=== PATIENT | female | born 1980 | race Caucasian/White ===

== ENCOUNTER → 2021-04-05 | Outpatient (CLI) | payer OTHER ==
[~2021-04-05] VITALS: Ht 160 cm; Wt 70.3 kg
[2021-04-05 08:43] LABS: CREATININE 0.9 mg/dL (0.6-1.3)
[2021-04-05 09:34] VITALS: BP 105/64
[2021-04-05 10:03] VITALS: BP 102/66
[2021-04-05 11:56] VITALS: BP 94/57
[2021-04-05 12:11] VITALS: BP 100/57
[2021-04-05 12:26] VITALS: BP 104/65
== END ==
LOC: M.CT 08:07
PROVIDERS: ATTEND Internal Medicine
DX: Z01.812 Encounter for preprocedural laboratory examination (principal); R07.9 Chest pain, unspecified; R06.02 Shortness of breath; R94.39 Abnormal result of other cardiovascular function study

== ENCOUNTER → 2021-05-10 | Outpatient (CLI) | payer OTHER | LOC: M.ULTRA 04-27 15:49 | PROVIDERS: ATTEND Internal Medicine | DX: K80.80 Other cholelithiasis without obstruction (principal); R07.9 Chest pain, unspecified ==